=== PATIENT | male | born 1960 | race Caucasian/White ===

== ENCOUNTER 2016-07-26 06:25 | Day surgery (SDC) | payer MEDICARE, MEDICAID ==
--- NOTE | 2016-07-25 11:13 | NUR ---
NN CALLED DR. DELA CRUZ OFFICE AND MALORIE OR CHARGE NURSE TO INFORM THEM THAT THE PT HAD REPORTED CHEST PAIN WITHIN THE LAST 2 MTHS. HE STATED HE TOOK A NITRO AND THE CP RESOLVED. HE DID NOT REPORT THE CP TO HIS STATION USHER DR. FLOYD. PT STATES HE JUST TELLS HIM ABOUT HIS EPISODES WHEN HE SEES HIM FOR HIS ROUTINE VISITS.
[2016-07-26] VITALS (21 sets, daily range): BP systolic 86–131; BP diastolic 50–75; PULSE 70–90; RESP 14–22; TEMP 97.6–97.8; O2SAT 74–98; Ht 177.8 cm; Wt 89.0 kg
[~2016-07-26] VITALS: Ht 177.8 cm; Wt 89.0 kg
[~2016-07-26 06:25] MED LIST: ASPI-611 PO; DULO60CA25 PO; ESOM20CA18 PO; GABA-222 PO; IPRA4AER PO; LEVO25TA9 PO; MELO-273 PO; METF-203 PO; METO25TA6 PO; MULT-1243 PO; NITR0.4T38 SL; PALI6TAB3 PO; PRAV40TA46 PO; QUET400T5 PO; TIOT18CA3 ORAL INH; TRAZ-58 PO
--- OUTSIDE RECORDS SUMMARY | 2016-07-26 06:30 | XMS REPORT ---
Author Author [facility] Organization Unknown Address Unknown Phone Unavailable Care Team Providers Care Clerk Cashier Name Role Phone UNASSIGNED DOCTOR , DOCTOR PP [phone] Reason For Visit Reason for Visit from 08/07/2014 11:44 PM:* Pt Stated Reason for Adm : Suicidal, I was going to shoot myself Chief Complaint PSYCHOSIS NOS Social History Social History from 08/12/2014 12:58 PM:* Tobacco Use? : Current Everyday Smoker Social History from 08/07/2014 11:44 PM:* Tobacco Use? : Current Everyday Smoker Functional Status Functional Status from 08/12/2014 9:00 AM:* LOC : Alert * Oriented To : Person,Place,Time,Event * Weight Bearing Status : Full * Assist Level : Independent * # Assists : Independent Functional Status from 08/11/2014 8:05 PM:* LOC : Alert * Oriented To : Person,Place,Time * Weight Bearing Status : Full * Assist Level : Independent * # Assists : Independent Functional Status from 08/11/2014 9:00 AM:* LOC : Alert * Oriented To : Person,Place,Time,Event * Weight Bearing Status : Full * Assist Level : Independent * # Assists : Independent Functional Status from 08/10/2014 8:10 PM:* LOC : Alert * Oriented To : Person,Place,Time * Weight Bearing Status : Full * Assist Level : Independent * # Assists : Independent Functional Status from 08/10/2014 9:34 AM:* LOC : Alert * Oriented To : Person,Place,Time,Event * Weight Bearing Status : Full * Assist Level : Independent * # Assists : Independent Functional Status from 08/09/2014 8:10 PM:* LOC : Alert * Oriented To : Person,Place,Time * Weight Bearing Status : Full * Assist Level : Independent * # Assists : Independent Functional Status from 08/09/2014 9:00 AM:* LOC : Alert * Oriented To : Person,Place,Time,Event * Weight Bearing Status : Full * Assist Level : Independent * # Assists : Independent Functional Status from 08/08/2014 8:15 PM:* LOC : Alert * Oriented To : Person,Place,Time * Weight Bearing Status : Full * Assist Level : Independent * # Assists : Independent Functional Status from 08/08/2014 9:17 AM:* LOC : Alert * Oriented To : Person,Place,Time,Event * Weight Bearing Status : Full * Assist Level : Independent * # Assists : Independent Functional Status from 08/07/2014 11:44 PM:* LOC : Alert * Oriented To : Person,Place,Time,Event * Weight Bearing Status : Full * Assist Level : Independent * # Assists : Independent Vital Signs Hospital Vital Signs from 08/12/2014 7:13 AM:* Weight : 79.4/ kg * Height : 5/10 ft,in * Temperature : 98.0 F * Pulse : 115 * Respirations : 18 * BP : 121/81 Hospital Vital Signs from 08/11/2014 6:24 AM:* Height : 5/10 ft,in * Temperature : 97.5 F * Pulse : 98 * Respirations : 18 * BP : 109/67 Hospital Vital Signs from 08/10/2014 9:38 AM:* Weight : 78.8/ kg * Height : 5/10 ft,in Hospital Vital Signs from 08/10/2014 6:35 AM:* Weight : 78.8/ kg * Height : 5/10 ft,in Hospital Vital Signs from 08/10/2014 6:19 AM:* Height : 5/10 ft,in * Temperature : 97.0 F * Pulse : 89 * Respirations : 20 * BP : 109/74 Hospital Vital Signs from 08/09/2014 6:07 AM:* Height : 5/10 ft,in * Temperature : 97.0 F * Pulse : 110 * Respirations : 20 * BP : 99/64 Hospital Vital Signs from 08/08/2014 3:12 PM:* Height : 5/10 ft,in * Temperature : 97.6 F * Pulse : 102 * Respirations : 18 * BP : 109/71 Hospital Vital Signs from 08/08/2014 6:55 AM:* Height : 5/10 ft,in * Temperature : 97.2 F * Pulse : 96 * Respirations : 16 * BP : 96/57 Hospital Vital Signs from 08/07/2014 11:44 PM:* Weight : 78.3/ kg * Height : 5/10 ft,in Hospital Vital Signs from 08/07/2014 11:10 PM:* Weight : 78.3/ kg * Height : 5/10 ft,in * Temperature : 97.4 F * Pulse : 89 * Respirations : 20 * BP : 113/78 Results Chemistry from 08/08/2014 6:33 AMGLUCOSE (FASTING) 93 MG/DL (65-99 MG/DL) Problems Encounter Diagnosis * Mood Disorder Status:Active. Encounters Encounter Diagnosis * Mood Disorder Status:Active. Plan of Care Follow-up Appointments from 08/12/2014 12:58 PM:* #1 Office appointment: : Tate Montes * #1 Date/Time : 08/26/2014 2:00 PM * Address # 1 : [employer] [phone] * #2 Office appointment: : Arabella Ji * #2 Date/Time : 08/18/2014 11:00 AM * Address # 2 : [employer] [phone] Procedures No relevant procedures performed. Immunizations No immunizations administered or ordered. Hospital Course Hospital Discharge Instructions How to care for yourself at home from 08/12/2014 12:58 PM:* Discharge Activity : Activity as tolerated * Discharge Diet : As before hospitalization * Discharge Diet: : ADA diet * Call your doctor if: : Fever over 101 F or severe chills,Chest pain or other unexplained symptoms,Tingling or numbness develops,A sudden increase or decrease in weight,You have persistent or worsening symptoms Allergies, Adverse Reactions, Alerts * Penicillins causes Unknown. * No Latex Allergy. * No IV Contrast Allergy. Medication It is the responsibility of the patient or patient training representative to confirm the list of medications with either the patient's personal care provider or the patient's follow-up care provider to ensure the patient has an appropriate list of medications to take at home. Discharge medications Continued medications* levothyroxine (Synthroid) 25 mcg Tablet, Ordered By: DANILO ADKINS, PAC Directions: 1 tablet oral daily before breakfast * gabapentin enacarbil 600 mg Tablet Extended Release, Ordered By: DANILO ADKINS, PAC Directions: 2 tablet oral twice a day * esomeprazole magnesium (NexIUM) 40 mg capsule,delayed release(DR/EC), Ordered By: DANILO ADKINS PAC Directions: 1 capsule oral daily before breakfast Additional Instructions: dyspepsia Changed medications* aspirin 325 mg Tablet, Ordered By: TERRIE DAVISON Directions: 1 tablet oral daily for blood thinner * DULoxetine (Cymbalta) 60 mg capsule,delayed release(/EC), Ordered By: DANILO ADKINS PAC Directions: 2 capsule oral daily every morning for depression * metFORMIN 850 mg Tablet, Ordered By: DANILO ADKINS, PAC Directions: 1 tablet oral twice a day during meal for diabetes * nitroglycerin 0.4 mg Tablet, Sublingual, Ordered By: DANILO ADKINS PAC Directions: 1 tablet sublingual every six hours PRN chest pain * QUEtiapine (SEROquel) 200 mg Tablet, Ordered By: DANILO ADKINS PAC Directions: 3 tablets oral daily at bedtime for psychosis Additional Instructions: 3 TABS FOR A TOTAL DOSE OF 600MG * tiotropium bromide (SPIriva with HandiHaler) 18 mcg Capsule, w/Inhalation Device, Ordered By: TERRIE DAVISON Directions: 1 capsule by inhalation daily for shortness of breath * traZODone 150 mg Tablet, Ordered By: TERRIE DAVISON Directions: 1 tablet oral daily at bedtime for insomnia * pravastatin 40 mg Tablet, Ordered By: TERRIE DAVISON Directions: 1 tablet oral daily at bedtime for hypercholesterolemia Stopped medications* metoprolol tartrate 25 mg Tablet Directions: 1 tablet oral twice a day * paliperidone (Invega) 12mg tablet extended release 24hr Directions: 1 tablet oral daily * carisoprodol (Soma) 250 mg Tablet Directions: oral every six hours PRN as needed * benztropine Tablet Directions: 0.5 tablet oral PRN as needed
--- OUTSIDE RECORDS SUMMARY | 2016-07-26 06:30 | XMS REPORT | Continuity of Care Document ---
Author Author [facility] Organization [facility] Address Unknown Phone Unavailable Care Team Providers Care Rpg Programmer Analyst Name Role Phone JOHANA MADDEN MD PP Unavailable Insurance Providers Payer Name Policy Number Subscriber Name Relationship Medicarehumana Gold o [id number] Shakir Lobo 19 Self Problems No Known Problems or Medical conditions. Family History History Response Recorded Date/Time HX of Orthopedic Surgeries Y LUE AMPUTATION, L KNEE SURGERY, R SHOULDER REPAIR 11/19/12 11:07am Hx Abdominal Surgery Y CHOLEY,APPENDIX,TISSUE FROM STOMACH TO REBUILD "FLAPPER ",BOWEL OBSTRUC 11/19/12 11:07am HX Cerebrovascular Accident N 11/19/12 11:07am Hx Seizures N 11/19/12 11:07am Hx Angina Y 11/19/12 11:07am Hx Congestive Heart Failure N 11/19/12 11:07am Hx Heart Attack N 11/19/12 11:07am Hx Hypertension N 11/19/12 11:07am Hx Rheumatic Fever N 12/04/11 1:17pm Hx Chronic Obstructive Pulmonary Disease (COPD) N 11/19/12 11:07am Hx Diabetes Y 11/19/12 11:07am Hx Clotting Problems N 11/19/12 11:07am Hx Cancer N 11/19/12 11:07am Hx MRSA N 11/19/12 11:07am HX of Cardiac Surgeries Y HEART CATH 11/19/12 11:07am HX of Reproductive Surgeries N 11/19/12 11:07am HX of Endocrine Surgeries N 11/19/12 11:07am HX of Throat Surgery Y EGD, TONSILLECTOMY, ADENOIDECTOMY 11/19/12 11:07am HX of Neurological Surgeries Y neck surgery 11/19/12 11:07am HX of Genitourinary Surgeries N 11/19/12 11:07am Neurological neuropathy 09/04/10 6:26pm Social History History Response Recorded Date/Time Smoking Status Current every day smoker 11/19/12 11:07am Chewing Tobacco Status N 11/19/12 11:07am Hx Substance Use N HX MARIJUANA, QUIT IN 198711/19/12 11:07am Hx Alcohol Use N "CLEAN SINCE 1987" 11/19/12 11:07am Has the pt used tobacco in the last 12 months Y 11/19/12 11:07am Allergies, Adverse Reactions, Alerts Allergen Type Severity Reaction Last Updated Penicillins Allergy Intermediate 11/20/12 bee venom (honey bee) Allergy Severe 11/20/12 Medications Medication Dose Units Route Sig Qty Days Methocarbamol 750 Mg PO PRN Nitroglycerin 0.4 Mg SL PRN Isosorbide Mononitrate (Imdur) 30 Mg PO DAILY Aspirin 81 Mg PO DAILY Meloxicam 15 Mg PO DAILY PRN Pravastatin Sodium 40 Mg PO DAILY Duloxetine Hcl (Cymbalta) 60 Mg PO DAILY Duloxetine Hcl (Cymbalta) 30 Mg PO DAILY Benztropine Mesylate 1.5 Mg PO DAILY PRN Metformin Hcl 1 Tab PO TID Gabapentin 2 Tab PO TID Esomeprazole Mag Trihydrate (Nexium) 40 Mg PO DAILY Paliperidone (Invega) 2 Tab PO DAILY Trazodone Hcl 150 Mg PO TID Quetiapine Fumarate (Seroquel Xr) 800 Mg PO HS Methocarbamol 1 Tab PO Q8H PRN [Pravastatin] PO DAILY [cholesterol med] [Cymbalta] PO DAILY Hydrocodone Bit/Acetaminophen (Lortab 7.5) 1 Tab PO PRN Methocarbamol (Robaxin-750) 1 Tab PO HS Fish Oil/[place]-3 Fatty Acids (Fish Oil 1,000 Mg Capsule) 1 Cap PO BID Immunizations Name Given Type Hx Influenza Vaccination Y JAN 2012 H Hx Pneumococcal Vaccination N H Response Recorded Date/Time Status not known Unknown Results Test Date Result Interp. Ref. Range Acetaminophen Level September 18, 2009 3:00pm < 10 UG/ML L 10-30 Activated Partial Thromboplast Time October 08, 2009 4:30pm 34.0 SEC N 24-36 Alanine Aminotransferase (ALT/SGPT) October 25, 2012 1:05pm 23 U/L N 21-72 Albumin October 25, 2012 1:05pm 3.3 G/DL L 3.5-5.0 Albumin/Globulin Ratio October 25, 2012 1:05pm 1.4 RATIO N 1.1-2.2 Alcohol, Quantitative September 18, 2009 3:00pm <10 MG/DL - Alkaline Phosphatase October 25, 2012 1:05pm 72 U/L N 38-126 Amylase Level April 11, 2010 10:25pm 42 U/L N 30-110 Anion Gap November 20, 2012 10:50am 11 MEQ/L N 5-15 Aspartate Amino Transf (AST/SGOT) October 25, 2012 1:05pm 22 U/L N 17-59 BUN/Creatinine Ratio November 20, 2012 10:50am 10 RATIO N 6-26 Band Neutrophils # November 20, 2012 10:50am 0.4 T/MM3 - Band Neutrophils % November 20, 2012 10:50am 2.0 % N 0-6 Basophils # (Auto) October 26, 2012 6:25am 0.0 T/MM3 N 0-0.2 Basophils # (Manual) July 15, 2009 11:11am 0.0 T/MM3 N 0-0.2 Basophils % (Manual) July 15, 2009 11:11am 0.0 % N 0-2 Basophils (%) (Auto) October 26, 2012 6:25am 0.3 % N 0-2 Blood Urea Nitrogen November 20, 2012 10:50am 6.0 MG/DL L 9-20 Calcium Level November 20, 2012 10:50am 8.8 MG/DL N 8.4-10.2 Calculated Osmolality November 20, 2012 10:50am 271 MOSM/KG N 261-280 Carbon Dioxide Level November 20, 2012 10:50am 24 MEQ/L N 22-30 Chloride Level November 20, 2012 10:50am 107 MEQ/L N 98-107 Cholesterol Level September 18, 2009 3:00pm 223 MG/DL H 132-199 Cholesterol/HDL Ratio September 18, 2009 3:00pm 8.3 RATIO H 0-5.0 Conjugated Bilirubin April 11, 2010 10:25pm 0.00 MG/DL N 0.00-0.30 Creatine Kinase MB October 25, 2012 1:05pm 0.4 NG/ML N 0-3.4 Creatinine November 20, 2012 10:50am 0.6 MG/DL L 0.8-1.5 D-Dimer October 25, 2012 1:05pm < 150 NG/ML 0-230 Differential Total Cells Counted April 11, 2010 10:25pm 100 % - Eosinophils # (Auto) October 26, 2012 6:25am 0.3 T/MM3 N 0-0.5 Eosinophils # (Manual) November 20, 2012 10:50am 0.4 T/MM3 N 0-0.5 Eosinophils % (Manual) November 20, 2012 10:50am 2.0 % N 0-4 Eosinophils (%) (Auto) October 26, 2012 6:25am 2.8 % N 0-4 Globulin October 25, 2012 1:05pm 2.4 G/DL N 2.4-3.6 Glomerular Filtration Rate Calc November 20, 2012 10:50am 142 - Glucometer October 26, 2012 12:15pm 106 mg/dL N 75-110 Glucose Level November 20, 2012 10:50am 96 MG/DL N 75-110 HDL Cholesterol Direct September 18, 2009 3:00pm 27 MG/DL L 40-60 Hematocrit November 20, 2012 10:50am 41.8 % N 41-53 Hemoglobin November 20, 2012 10:50am 14.0 GM/DL N 13.5-17.5 Immature Granulocyte # (Auto) October 26, 2012 6:25am 0.04 T/MM3 H 0.00-0.03 Immature Granulocyte % (Auto) October 26, 2012 6:25am 0.4 % N 0.0-0.5 Influenza Type A Antigen May 21, 2012 9:31pm Negative - Influenza Type B Antigen May 21, 2012 9:31pm Negative - LDL Cholesterol, Calculated September 18, 2009 3:00pm 111.4 N 66-159 Lipase April 11, 2010 10:25pm 125 U/L N 23-300 Lymphocytes # (Auto) October 26, 2012 6:25am 2.8 T/MM3 N 1-4.8 Lymphocytes # (Manual) November 20, 2012 10:50am 4.1 T/MM3 N 1-4.8 Lymphocytes % (Manual) November 20, 2012 10:50am 21.0 % L 23-45 Lymphocytes (%) (Auto) October 26, 2012 6:25am 30.5 % N 23-45 Magnesium Level August 05, 2007 1:15pm 2.1 MG/DL N 1.6-2.3 Mean Corpuscular Hemoglobin November 20, 2012 10:50am 31.4 UUG N 26-34 Mean Corpuscular Hemoglobin Concent November 20, 2012 10:50am 33.5 GM/DL N 31-37 Mean Corpuscular Volume November 20, 2012 10:50am 93.7 UM3 N 80-100 Mean Platelet Volume November 20, 2012 10:50am 10.1 UM3 N 9.4-12.4 Monocytes # (Auto) October 26, 2012 6:25am 0.8 T/MM3 N 0-0.8 Monocytes # (Manual) November 20, 2012 10:50am 1.0 T/MM3 H 0-0.8 Monocytes % (Manual) November 20, 2012 10:50am 5.0 % N 0-9.0 Monocytes (%) (Auto) October 26, 2012 6:25am 8.5 % N 0-9.0 Neutrophils # (Auto) October 26, 2012 6:25am 5.2 T/MM3 N 1.8-7.7 Neutrophils # (Manual) November 20, 2012 10:50am 13.8 T/MM3 H 1.8-7.7 Neutrophils % (Manual) November 20, 2012 10:50am 70.0 % H 33-66 Neutrophils (%) (Auto) October 26, 2012 6:25am 57.5 % N 33-66 Platelet Count November 20, 2012 10:50am 257 T/MM3 N 130-400 Potassium Level November 20, 2012 10:50am 3.9 MEQ/L N 3.6-5 Prothromb Time International Ratio October 08, 2009 4:30pm 0.96 N 0.86-1.10 RDW Standard Deviation November 20, 2012 10:50am 43.6 FL N 36.9-50.2 Reactive Lymphocytes # May 24, 2012 5:20pm 0.2 T/MM3 H 0-0 Reactive Lymphocytes % May 24, 2012 5:20pm 1.0 % H 0-0 Red Blood Count November 20, 2012 10:50am 4.46 M/MM3 L 4.50-5.90 Salicylates Level September 18, 2009 3:00pm < 1.0 MG/DL L 2-20 Sodium Level November 20, 2012 10:50am 142 MEQ/L N 134-144 Total Bilirubin October 25, 2012 1:05pm 0.40 MG/DL N 0.20-1.30 Total Protein October 25, 2012 1:05pm 5.7 G/DL L 6.3-8.2 Triglycerides Level September 18, 2009 3:00pm 423 MG/DL H 40-160 Troponin I October 26, 2012 6:25am < 0.012 ng/ml 0-0.12 Unconjugated Bilirubin April 11, 2010 10:25pm 0.36 MG/DL N 0.00-1.10 Urine Acetaminophen Screen September 18, 2009 3:00pm Negative NG/ML - Urine Amphetamines Screen September 18, 2009 3:00pm Negative NG/ML - Urine Bacteria April 12, 2010 1:47pm Trace H - Urine Barbiturates Screen September 18, 2009 3:00pm Negative NG/ML - Urine Benzodiazepines Screen September 18, 2009 3:00pm Negative NG/ML - Urine Bilirubin October 25, 2012 6:11pm Negative - Urine Blood October 25, 2012 6:11pm Negative - Urine Calcium Oxalate Crystals October 08, 2008 6:05am Few - Urine Cannabinoids Screen September 18, 2009 3:00pm Positive NG/ML - Urine Cocaine Screen September 18, 2009 3:00pm Negative NG/ML - Urine Collection Type October 25, 2012 6:11pm Cleancatch-midstream - Urine Color October 25, 2012 6:11pm Yellow - Urine Drug Screen Confirmation September 18, 2009 3:23pm Sent out - Urine Glucose (UA) October 25, 2012 6:11pm Negative - Urine Ketones October 25, 2012 6:11pm Negative - Urine Leukocyte Esterase October 25, 2012 6:11pm Negative - Urine Methadone Screen September 18, 2009 3:00pm Negative NG/ML - Urine Methamphetamines Screen September 18, 2009 3:00pm Negative NG/ML - Urine Microscopic Not Indicated October 09, 2009 5:36pm Not indicated - Urine Nitrite October 25, 2012 6:11pm Negative - Urine Opiates Screen September 18, 2009 3:00pm Negative NG/ML - Urine Phencyclidine Screen September 18, 2009 3:00pm Negative NG/ML - Urine Protein October 25, 2012 6:11pm Negative - Urine RBC April 12, 2010 1:47pm None seen /HPF - Urine Specific [place] October 25, 2012 6:11pm 1.010 L - Urine Squamous Epithelial Cells October 08, 2008 6:05am None seen - Urine Tricyclic Antidepressants September 18, 2009 3:00pm Negative NG/ML - Urine Turbidity October 25, 2012 6:11pm Clear - Urine Urobilinogen October 25, 2012 6:11pm Normal EU/DL - Urine WBC April 12, 2010 1:47pm 0-1 /HPF - Urine pH October 25, 2012 6:11pm 7.0 - VLDL Cholesterol September 18, 2009 3:00pm 84.6 MG/DL H 0-28 White Blood Count November 20, 2012 10:50am 19.7 T/MM3 H 4.5-11.0 Procedures Procedure Code Date COLONOSCOPY AND BIOPSY 53374 09/04/07 INCISE THIGH TENDON & FASCIA 56268 07/15/09 LESION REMOVAL COLONOSCOPY 61440 12/06/11 COLONOSCOPY AND BIOPSY 67373 12/06/11 THER/PROPH/DIAG INJ IV PUSH 41079 05/21/12 TX/PRO/DX INJ NEW DRUG ADDON 34723 05/21/12 HYDRATE IV INFUSION ADD-ON 60320 05/21/12 Blood Culture 10/25/12 Encounters Encounter Location Date/Time Discharged Inpatient [facility] 10/25/12 12:25pm Departed Emergency Room [facility] 05/21/12 7:34pm
--- OUTSIDE RECORDS SUMMARY | 2016-07-26 06:30 | XMS REPORT | Continuity of Care Document ---
Author Author [facility] Organization [facility] Address Unknown Phone Unavailable Care Team Providers Care Escrow Clerk Name Role Phone JOHANA MADDEN MD PP Unavailable Insurance Providers Payer Name Policy Number Subscriber Name Relationship Medicarehumana Gold o [id number] Shakir Lobo 19 Self Problems No Known [...] Methocarbamol (Robaxin-750) 1 Tab PO HS Fish Oil/[place]-3 Fatty Acids (Fish Oil 1,000 Mg Capsule) [...] 1:47pm None seen /HPF - Urine Specific [place] October 25, 2012 6:11pm 1.010 L - [...] Procedures Procedure Code Date COLONOSCOPY AND BIOPSY 54167 09/04/07 INCISE THIGH TENDON & FASCIA 67017 07/15/09 LESION REMOVAL COLONOSCOPY 71813 12/06/11 COLONOSCOPY AND BIOPSY 52366 12/06/11 THER/PROPH/DIAG INJ IV PUSH 12512 05/21/12 TX/PRO/DX INJ NEW DRUG ADDON 60924 05/21/12 HYDRATE IV INFUSION ADD-ON 37976 05/21/12 Blood Culture 10/25/12 Encounters Encounter Location Date/Time Discharged Inpatient [facility] 10/25/12 12:25pm Departed Emergency Room [facility] 05/21/12 7:34pm
--- OUTSIDE RECORDS SUMMARY | 2016-07-26 06:30 | XMS REPORT ---
Author Author [facility] Organization Unknown Address Unknown Phone Unavailable Care Team Providers Care Primary School Teacher Name Role Phone UNASSIGNED DOCTOR , DOCTOR PP [phone] Reason For Visit Reason for Visit from [...] 2:00 PM * Address # 1 : [email or web address] [phone] * #2 Office appointment: : Arabella Ji * #2 Date/Time : 08/18/2014 11:00 AM * Address # 2 : [email or web address] [phone] Procedures No relevant procedures performed. Immunizations No [...] the responsibility of the patient or patient outside sales representative to confirm the list of medications [...] metFORMIN 850 mg Tablet, Ordered By: DANILO ADIKNS PAC Directions: 1 tablet oral twice a [...] 18 mcg Capsule, w/Inhalation Device, Ordered By: DANILO ADKINS PAC Directions: 1 capsule by inhalation daily for [...]
[2016-07-26] MEDS ORDERED: FENTANYL 100mcg/2ml INJECTION ONE (06:50)
[2016-07-26] MEDS ORDERED: MIDAZOLAM 5mg/5ml INJECTION ONE (06:50)
[2016-07-26] MEDS ORDERED: SALINE FLUSH 10ml SYRINGE ONE (06:52)
[2016-07-26] MEDS ORDERED: LIDOCAINE 1% (10mg/ml) 2ml SDV INJ ONE (07:00)
[2016-07-26] MEDS ORDERED: LR 1,000 ML IV SCH (07:00)
[2016-07-26] MEDS ORDERED: BREO (07:14)
[2016-07-26] MEDS ORDERED: FENTANYL 100mcg/2ml INJECTION IV PRN (08:24)
[2016-07-26] MEDS ORDERED: MIDAZOLAM 5mg/5ml INJECTION IV PRN (08:24)
[2016-07-26] MEDS ORDERED: GLUCAGON 1 MG INJECTION IV PRN (08:37)
[2016-07-26] MEDS ORDERED: GLUCAGON 1 MG INJECTION ONE (08:39)
[2016-07-26] MEDS ORDERED: MIDAZOLAM 2mg/2ml INJECTION ONE (08:45)
[2016-07-26] MEDS ORDERED: PEG4000S3 PO (09:48)
--- NOTE | 2016-07-26 15:50 | OPNOTEF ---
DATE OF PROCEDURE: 07/26/2016 PHYSICIAN: Sonny Bhardwaj DO PROCEDURE: Colonoscopy. INDICATION FOR PROCEDURE History of colon polyps. ASA CLASSIFICATION: 2 DESCRIPTION OF PROCEDURE Consent was signed and on the chart. Routine monitoring with ECG, continuous oximetry and noninvasive blood pressure was performed throughout the procedure and found to be within normal limits. IV sedation was performed with a total of 7 mg of Versed and 80 mcg of fentanyl. He was also given 1 amp of glucagon. Prior to the procedure the patient was brought to the endoscopy lab where a brief review of his medical history and physical exam was performed. The procedure was described to him and he was agreeable to continue. All questions were answered. He was given IV sedation and placed in left lateral decubitus position. A digital rectal exam was normal. No masses. The colonoscope was introduced through the anal verge and immediately noted that he had a rather poor bowel prep. Multiple washings were performed throughout the procedure. I was able to get to the hepatic flexure and noted that with some washings there seemed to be a colon mass taking up approximately one-tenth of the bowel lumen. This was photographed and biopsied. Multiple washings were performed on the way out again and it was just a very poor bowel prep. He tolerated the procedure. The only complication was the poor bowel prep. IMPRESSION 1. Poor bowel prep. 2. Mass at the proximal transverse colon - biopsied. 3. Polyps at the transverse colon - biopsied. RECOMMENDATIONS Repeat the bowel prep today with clear liquids and repeat the procedure tomorrow with an attempt of complete polypectomy. NICHOLAS
== END 2016-07-26 10:45 | disposition home or self-care (01) ==
LOC: NSC 06:25
PROVIDERS: ATTEND Internal Medicine
DX: Z12.11 Encounter for screening for malignant neoplasm of colon (principal); D12.3 Benign neoplasm of transverse colon; Z86.010 Personal history of colon polyps; F17.200 Nicotine dependence, unspecified, uncomplicated; E11.9 Type 2 diabetes mellitus without complications; K21.0 Gastro-esophageal reflux disease with esophagitis; F20.0 Paranoid schizophrenia; F06.30 Mood disorder due to known physiological condition, unspecified; F60.9 Personality disorder, unspecified; F43.10 Post-traumatic stress disorder, unspecified; J44.9 Chronic obstructive pulmonary disease, unspecified; E66.9 Obesity, unspecified; Z68.28 Body mass index [BMI] 28.0-28.9, adult; Z79.84 Long term (current) use of oral hypoglycemic drugs; Z79.1 Long term (current) use of non-steroidal anti-inflammatories (NSAID); Z79.82 Long term (current) use of aspirin; Z79.899 Other long term (current) drug therapy
CPT/HCPCS: 45380; 82948; J1610; J2250; J3010; J7120

== ENCOUNTER 2016-07-27 10:34 | Day surgery (SDC) | payer MEDICARE, MEDICAID ==
[~2016-07-27] VITALS: Ht 177.8 cm; Wt 88.8 kg
[2016-07-27] VITALS (23 sets, daily range): BP systolic 75–110; BP diastolic 43–64; PULSE 67–82; RESP 14–16; TEMP 97–97.5; O2SAT 90–98; Ht 177.8 cm; Wt 88.8 kg
[~2016-07-27 10:34] MED LIST changes: +BREO; +LIDOCAINE 1% (10mg/ml) 2ml SDV INJ ONE; +LR 1,000 ML IV SCH; +PEG4000S3 PO; -TIOT18CA3 ORAL INH
--- OUTSIDE RECORDS SUMMARY | 2016-07-27 10:38 | XMS REPORT | Continuity of Care Document ---
Author Author [facility] Organization [facility] Address Unknown Phone Unavailable Care Team Providers Care Cathodic Protection Technician Name Role Phone JOHANA MADDEN MD PP Unavailable Insurance Providers Payer Name Policy Number Subscriber Name Relationship Medicarehumana Gold o [id number] Shakir Lobo 19 Self Problems No Known [...] Methocarbamol (Robaxin-750) 1 Tab PO HS Fish Oil/[place]-3 Fatty Acids (Fish Oil 1,000 Mg Capsule) [...] 1:47pm None seen /HPF - Urine Specific [place] October 25, 2012 6:11pm 1.010 L - [...] Procedures Procedure Code Date COLONOSCOPY AND BIOPSY 83729 09/04/07 INCISE THIGH TENDON & FASCIA 66082 07/15/09 LESION REMOVAL COLONOSCOPY 81926 12/06/11 COLONOSCOPY AND BIOPSY 40701 12/06/11 THER/PROPH/DIAG INJ IV PUSH 01905 05/21/12 TX/PRO/DX INJ NEW DRUG ADDON 94996 05/21/12 HYDRATE IV INFUSION ADD-ON 86739 05/21/12 Blood Culture 10/25/12 Encounters Encounter Location Date/Time Discharged Inpatient [facility] 10/25/12 12:25pm Departed Emergency Room [facility] 05/21/12 7:34pm
--- OUTSIDE RECORDS SUMMARY | 2016-07-27 10:38 | XMS REPORT | Continuity of Care Document ---
Author Author [facility] Organization [facility] Address Unknown Phone Unavailable Care Team Providers Care Coat Check Attendant Name Role Phone RAMIRO DELA CRUZ DO Primary Care Physician [phone] Insurance Providers Guarantor Shakir Lobo Address [address] [place] [address] Email DENIED 16 Payer Medicaid Policy Number [id number] Subscriber's Shakir Bonilla Relationship 18 Self Effective Date 16 Expiration Date 16 Payer Medicarehumana Gold Hmo Policy Number [id number] Subscriber's Shakir Bonilla Relationship 18 Self Advance Directives Directive Response Recorded Date/Time Ordered Resuscitation Status Full Code, unverified 07/25/16 2:51pm Resuscitation Documents on File No 07/26/16 7:04am DPOA for Healthcare Only No 07/26/16 7:04am Living Will No 07/26/16 7:04am Problems Active Problems Medical Problem Onset Date Status Depression with suicidal ideation Unknown Acute Schizophrenia Unknown Acute Medications Current Home Medications Medication Dose Units Route Directions Days Qty Instructions Start Date Albuterol/Ipratropium (Combivent Respimat Inhal [place]) 120 Puff/4 Gm Inha 1 Puff Oral Four Times Daily as needed for Shortness Of Air/Wheezing 07/25/16 Aspirin 81 Mg Tablet 81 Mg Oral Daily 11/19/12 Breo Daily 07/26/16 Duloxetine Hcl (Cymbalta) 60 Mg Capsule. 60 Mg Oral Daily COMBINE WITH 30MG TO EQUAL 90MG TOTAL. 05/21/12 Esomeprazole Mag Trihydrate (Nexium) 20 Mg Capsule.dr 40 Mg Oral Daily 10/09/09 Gabapentin 600 Mg Tablet 2 Tab Oral Twice A Day 05/21/10 Levothyroxine Sodium 25 Mcg Tablet 25 Mcg Oral Before Breakfast Once daily before breakfast 08/07/14 Meloxicam 7.5 Mg Tablet 1 Tab Oral Daily 30 04/05/15 Metformin Hcl 850 Mg Tablet 1 Tab Oral Twice A Day 05/21/10 Metoprolol Tartrate 25 Mg Tablet 1 Tab Oral Twice A Day 60 Multivits-Min/Fa/Lycopene/Lut (Centrum Silver Tablet) 1 Each Tablet 1 Tab Oral Daily 07/25/16 Nitroglycerin 0.4 Mg Tab.subl 0.4 Mg Sublingual As Needed Paliperidone (Invega) 6 Mg/Blist Pack Tab.osm.24 2 Tab Oral Daily 10/09/09 Peg 3350/Na Sulf,Bicarb,Cl/Kcl (Golytely Solution) 4,000 Ml Solution 4,000 Ml Oral Onetime 1 Bottle Take 1 (8 ounce) glass every 10 minutes until all taken. 07/26/16 Pravastatin Sodium 40 Mg Tablet 40 Mg Oral Daily 10/25/12 Quetiapine Fumarate (Seroquel Xr) 400 Mg Tab.sr.24h 800 Mg Oral Bedtime 10/09/09 Trazodone Hcl 100 Mg Tablet 150 Mg Oral Bedtime 10/09/09 Past Home Medications Medication Directions Ordered Status Cholesterol Med , 05/21/12 Discontinued Cymbalta , Oral Daily 04/11/10 Discontinued Docusate Sodium 100 Mg Tablet, 100 Mg Oral As Needed 10/09/09 Discontinued Duloxetine Hcl (Cymbalta) 60 Mg Capsule.dr, 60 Mg Oral Daily 10/09/09 Discontinued Fish Oil/[place]-3 Fatty Acids (Fish Oil 1,000 Mg Capsule) 1 Cap Capsule, 1 Cap Oral Twice A Day 10/09/09 Discontinued Gabapentin 300 Mg Tablet, 600 Mg Oral Twice A Day 10/09/09 Discontinued Hydrocodone Bit/Acetaminophen (Lortab 7.5) 1 Udtab Tablet, 1 Tab Oral As Needed 09/04/10 Discontinued Hydroxyzine Pamoate 25 Mg Capsule, 25 Mg Oral As Needed 10/09/09 Discontinued Hydroxyzine Pamoate (Vistaril) 25 Mg Capsule, 1 Oral Three Times A Day 10/08 Discontinued Isosorbide Mononitrate (Imdur) 30 Mg Tablet, 30 Mg Oral Daily 08/03/09 Discontinued Lansoprazole (Prevacid) 30 Mg Capsule.dr, 30 Mg Oral Daily 08/03/09 Discontinued Lovastatin 10 Mg Tablet, 10 Mg Oral Bedtime 10/09/09 Discontinued Metformin Hcl 500 Mg Tablet, 500 Mg Oral Twice A Day 10/09/09 Discontinued Methocarbamol 750 Mg Tablet, 1 Tab Oral Every 8 Hours as needed 10/25/12 Discontinued Methocarbamol (Robaxin-750) 750 Mg Tablet, 1 Tab Oral Bedtime 05/21/10 Discontinued Multivitamins (Multivitamin) 1 Tab Tablet, 1 Tab Oral Daily 10/09/09 Discontinued Neurontin 1200 Mg , Oral Twice A Day 10/08/08 Discontinued Pravastatin , Oral Daily 05/21/12 Discontinued Sennosides/Docusate Sodium (Senna Plus Tablet) 1 Udtab Tablet, 1 Udtab Oral Twice A Day 08/03/09 Discontinued Seroquel 500 Mg , Oral Daily 10/08/08 Discontinued Sertraline Hcl (Zoloft) 100 Mg Tablet, 1 Oral Daily 10/08/08 Discontinued Trazodone Hcl 50 Mg Tablet, Oral Daily 10/08/08 Discontinued Social History Social History Problem Response Recorded Date/Time Onset Date Status Reason for Hospitalization COLONOSCOPY 07/26/2016 9:58am Not Applicable Not Applicable Chewing Tobacco Status No 11/19/2012 11:07am Not Applicable Not Applicable Hx Substance Use N HX MARIJUANA, QUIT IN 198707/26/2016 6:59am Not Applicable Not Applicable Hx Alcohol Use Y "CLEAN SINCE 1987", no beer since 07/26/2016 6:59am Not Applicable Not Applicable Has the pt used tobacco in the last 12 months Yes 07/26/2016 6:59am Not Applicable Not Applicable Tobacco Usage none 08/07/2014 6:51pm Not Applicable Not Applicable Query Response Start Date Stop Date Smoking Status Current every day smoker Hospital Discharge Instructions Instructions: Care Instructions: I was in the hospital because (patient own words): "COLONOSCOPY" Discharge Diet: You may resume your usual diet. Discharge Activity: You may resume your usual activity. Follow Up Appointments: Follow up with Dr. Dela Cruz as instructed. You can call his office for any questions or concerns. Pending Lab / Results: Will be notified Patient Instructions: Do not drive, operate machinery, drink alcohol, or sign important papers for 24 hours. Expected Signs/Symptoms: You may have some gas discomfort. Notify Physician If: Contact Dr. Dela Cruz if you have a fever over 101 degrees, severe abdominal pain, or severe rectal bleeding. During Business Hours:: During office hours, call Dr. Dela Cruz's office at [phone]. After Business Hours:: After hours, please call [facility] at [phone] and have the plastic extruding machine operator page Dr. Dela Cruz or the covering physician. Pain Management/Treatment: You should not have significant pain following the procedure. Wound/Incision Care: No wound care required. Condition at time of discharge: Good Plan of Care Discharge Date 07/26/16 10:45am Instructions/Education Provided [facility] Surgical Services Prescriptions See Medication Section Functional Status Query Response Date Recorded Ability to complete ADL's impeded by No change July 26, 2016 7:04am Allergies, Adverse Reactions, Alerts Allergen Type Severity Reaction Status Last Updated Penicillin Allergy Intermediate Active 07/26/16 Bee venom Allergy Severe Active 07/26/16 Immunizations Query Response on File Recorded Date/Time Hx Influenza Vaccination Y fall 201507/26/16 6:59am Hx Pneumococcal Vaccination Y 201407/26/16 6:59am Hx Influenza Vaccination Y fall 201507/26/16 6:59am Vital Signs Acute Vital Signs Vital Response Date/Time Temperature (Fahrenheit) 97.8 deg F (96.8 - 99.1) 07/26/2016 9:23am Temperature (Calculated Celsius) 36.50612 degrees C (36.0 - 37.3) 07/26/2016 9:23am Temperature Source Temporal 07/26/2016 9:23am Pulse Rate (adult) 76 bpm (60 - 100) 07/26/2016 10:20am Respiratory Rate 20 breaths/min (10 - 20) 07/26/2016 10:20am O2 Sat by Pulse Oximetry 91 % (90 - 100) 07/26/2016 10:20am Oxygen Delivery Method Mask 07/26/2016 8:55am Oxygen Delivery Method Room Air 07/26/2016 10:20am Oxygen Flow Rate 6.00 L/min 07/26/2016 9:30am Blood Pressure 119/75 mm Hg 07/26/2016 10:20am Blood Pressure Source Automatic Cuff 07/26/2016 10:20am Height (Feet) 5 feet 07/26/2016 6:41am Height (Inches) 10.00 inches 07/26/2016 6:41am Weight (Kilograms) 89.000 kg 07/26/2016 6:41am Body Mass Index (BMI) 28.2 07/26/2016 6:41am Results Laboratory Results Test Name Result Units Flags Reference Collection Date/Time Result Date/ Time Comments Glucometer 119 mg/dL H 75-110 07/26/2016 6:51am 07/26/2016 6:56am Procedures Procedure Status Date Provider(s) Colonoscopy Completed 07/26/16 RAMIRO DELA CRUZ DO Encounters Encounter Location Arrival/Admit Date Discharge/Depart Date Attending Provider Departed [facility] 07/26/16 6:25am 07/26/16 10 :45am RAMIRO DELA CRUZ DO
--- OUTSIDE RECORDS SUMMARY | 2016-07-27 10:38 | XMS REPORT ---
Author Author GENERATED, SYSTEM Organization Unknown Address Unknown Phone Unavailable Care Team Providers Care Sales And Management Trainee Name Role Phone UNASSIGNED DOCTOR , DOCTOR PP [phone] Reason For Visit Reason for Visit from [...] 2:00 PM * Address # 1 : [email or web address] [phone] * #2 Office appointment: : Arabella Ji * #2 Date/Time : 08/18/2014 11:00 AM * Address # 2 : [email or web address] [phone] Procedures No relevant procedures performed. Immunizations No [...] the responsibility of the patient or patient product sales representative to confirm the list of [...] metFORMIN 850 mg Tablet, Ordered By: DANILO ADKINS PAC Directions: 1 tablet oral twice a [...]
--- OUTSIDE RECORDS SUMMARY | 2016-07-27 10:38 | XMS REPORT ---
Author Author [facility], SYSTEM Organization Unknown Address Unknown Phone Unavailable Care Team Providers Care Automotive Tire Worker Name Role Phone UNASSIGNED DOCTOR , DOCTOR PP [phone] Reason For Visit Reason for Visit from [...] 2:00 PM * Address # 1 : [place] [phone] * #2 Office appointment: : Arabella Ji * #2 Date/Time : 08/18/2014 11:00 AM * Address # 2 : [place] [phone] Procedures No relevant procedures performed. Immunizations No [...] the responsibility of the patient or patient food service sales representatives to confirm the list of medications with [...]
--- OUTSIDE RECORDS SUMMARY | 2016-07-27 10:38 | XMS REPORT | Continuity of Care Document ---
Author Author [facility] Organization [facility] Address Unknown Phone Unavailable Care Team Providers Care Plate Take Out Worker Name Role Phone JOHANA MADDEN MD PP Unavailable Insurance Providers Payer Name Policy Number Subscriber Name Relationship Medicarehumana Gold o [id number] Shakir Lobo 19 Self Problems No Known [...] Methocarbamol (Robaxin-750) 1 Tab PO HS Fish Oil/[place]-3 Fatty Acids (Fish Oil 1,000 Mg Capsule) [...] 1:47pm None seen /HPF - Urine Specific [place] October 25, 2012 6:11pm 1.010 L - [...] Procedures Procedure Code Date COLONOSCOPY AND BIOPSY 76630 09/04/07 INCISE THIGH TENDON & FASCIA 09011 07/15/09 LESION REMOVAL COLONOSCOPY 34470 12/06/11 COLONOSCOPY AND BIOPSY 64435 12/06/11 THER/PROPH/DIAG INJ IV PUSH 64047 05/21/12 TX/PRO/DX INJ NEW DRUG ADDON 74457 05/21/12 HYDRATE IV INFUSION ADD-ON 09545 05/21/12 Blood Culture 10/25/12 Encounters Encounter Location Date/Time Discharged Inpatient [facility] 10/25/12 12:25pm Departed Emergency Room [facility] 05/21/12 7:34pm
[2016-07-27] MEDS ORDERED: FLEET PHOSPHO-SODA 133 ML ENEMA RECTALLY PRN (12:15)
[2016-07-27] MEDS ORDERED: MIDAZOLAM 5mg/5ml INJECTION ONE (12:15)
[2016-07-27] MEDS ORDERED: SALINE FLUSH 10ml SYRINGE ONE (12:15)
[2016-07-27] MEDS ORDERED: FENTANYL 100mcg/2ml INJECTION ONE (12:15)
[2016-07-27] MEDS ORDERED: FENTANYL 100mcg/2ml INJECTION IV PRN (12:33)
[2016-07-27] MEDS ORDERED: MIDAZOLAM 5mg/5ml INJECTION IV PRN (12:33)
[2016-07-27] MEDS ORDERED: GLUCAGON 1 MG INJECTION ONE ×2 (13:15→13:33)
[2016-07-27] MEDS ORDERED: .STERILE WATER FOR INJECTION 10 ML ONE (13:15)
[2016-07-27] MEDS ORDERED: GLUCAGON 1 MG INJECTION IV PRN (13:15)
--- NOTE | 2016-07-28 07:27 | OPNOTEF ---
DATE OF PROCEDURE: 07/27/2016 PHYSICIAN: Sonny Bhardwaj DO PROCEDURE: Colonoscopy. INDICATION FOR PROCEDURE Colon polyps ASA CLASSIFICATION: 2 DESCRIPTION OF PROCEDURE Consent was signed and on the chart. Routine monitoring with ECG, continuous oximetry and noninvasive blood pressure was performed throughout the procedure and found to be within normal limits. IV sedation was performed with 5 mg of Versed and 50 mcg of fentanyl. He was also given 2 amps of glucagon during the procedure. Prior to the procedure, the patient was brought to the endoscopy lab where a brief review of his medical history and physical exam was performed. The procedure was described to him and he was agreeable to continue. All questions were answered. He was given IV sedation and placed in left lateral decubitus position. The endoscope was advanced through the anal verge and advanced to the cecum. Careful inspection of the mucosa was performed. Multiple washings were performed to ensure adequate visibility. At the level of the cecum, there was a small polyp which was photographed and removed by cold forceps. Also, at the proximal transverse colon, there was a larger adenomatous polyp which was biopsied and then removed with snare polypectomy, and again at the mid transverse the area which I believe I biopsied yesterday and labeled as proximal transverse is actually mid transverse. This area was removed by snare polypectomy as well, and then there was small polyp just distal to it which was also removed by snare polypectomy at the same time. He tolerated the procedure well. There were no complications. IMPRESSION 1. Polyp at the cecum removed by cold forceps. 2. Polyps at the proximal transverse biopsy that were removed with snare. 3. Polyps at the mid transverse removed with snare. RECOMMENDATIONS Review the path report. Repeat as indicated. MTDD
== END 2016-07-27 14:53 | disposition home or self-care (01) ==
LOC: NSC 10:34
PROVIDERS: ATTEND Internal Medicine
DX: D12.3 Benign neoplasm of transverse colon (principal); D12.0 Benign neoplasm of cecum; Z86.010 Personal history of colon polyps; J44.9 Chronic obstructive pulmonary disease, unspecified; F43.10 Post-traumatic stress disorder, unspecified; F60.9 Personality disorder, unspecified; F06.30 Mood disorder due to known physiological condition, unspecified; F20.0 Paranoid schizophrenia; K21.0 Gastro-esophageal reflux disease with esophagitis; E11.9 Type 2 diabetes mellitus without complications; F17.210 Nicotine dependence, cigarettes, uncomplicated; E66.9 Obesity, unspecified; Z68.28 Body mass index [BMI] 28.0-28.9, adult; Z79.82 Long term (current) use of aspirin; Z79.1 Long term (current) use of non-steroidal anti-inflammatories (NSAID); Z79.899 Other long term (current) drug therapy
CPT/HCPCS: 45380; 45385; 82948; A9270; J1610; J2250; J3010; J7120

== ENCOUNTER 2016-08-02 11:17 | Emergency (ER) | payer OTHER, MEDICARE, MEDICAID ==
[~2016-08-02] VITALS: Ht 177.8 cm; Wt 88.6 kg
[~2016-08-02 11:17] MED LIST changes: -LIDOCAINE 1% (10mg/ml) 2ml SDV INJ ONE; -LR 1,000 ML IV SCH; -PEG4000S3 PO
[2016-08-02 11:18] VITALS: Ht 177.8 cm; Wt 88.6 kg
--- OUTSIDE RECORDS SUMMARY | 2016-08-02 11:24 | XMS REPORT | Continuity of Care Document ---
Author Author [facility] Organization [facility] Address Unknown Phone Unavailable Care Team Providers Care Tile Designer Name Role Phone JOHANA MADDEN MD PP Unavailable Insurance Providers Payer Name Policy Number Subscriber Name Relationship Medicarehumana Gold o [id number] Shakir Lobo 19 Self Problems No Known [...] Methocarbamol (Robaxin-750) 1 Tab PO HS Fish Oil/[place]-3 Fatty Acids (Fish Oil 1,000 Mg Capsule) [...] 1:47pm None seen /HPF - Urine Specific [place] October 25, 2012 6:11pm 1.010 L - [...] Procedures Procedure Code Date COLONOSCOPY AND BIOPSY 75476 09/04/07 INCISE THIGH TENDON & FASCIA 56614 07/15/09 LESION REMOVAL COLONOSCOPY 52252 12/06/11 COLONOSCOPY AND BIOPSY 94633 12/06/11 THER/PROPH/DIAG INJ IV PUSH 52534 05/21/12 TX/PRO/DX INJ NEW DRUG ADDON 72393 05/21/12 HYDRATE IV INFUSION ADD-ON 99074 05/21/12 Blood Culture 10/25/12 Encounters Encounter Location Date/Time Discharged Inpatient [facility] 10/25/12 12:25pm Departed Emergency Room [facility] 05/21/12 7:34pm
--- OUTSIDE RECORDS SUMMARY | 2016-08-02 11:25 | XMS REPORT | Continuity of Care Document ---
Author Author [facility] Organization [facility] Address Unknown Phone Unavailable Care Team Providers Care Timber Skidder Name Role Phone JOHANA MADDEN MD PP Unavailable Insurance Providers Payer Name Policy Number Subscriber Name Relationship Medicarehumana Gold o [id number] Shakir Lobo 19 Self Problems No Known [...] Methocarbamol (Robaxin-750) 1 Tab PO HS Fish Oil/[place]-3 Fatty Acids (Fish Oil 1,000 Mg Capsule) [...] 1:47pm None seen /HPF - Urine Specific [place] October 25, 2012 6:11pm 1.010 L - [...] Procedures Procedure Code Date COLONOSCOPY AND BIOPSY 00773 09/04/07 INCISE THIGH TENDON & FASCIA 42930 07/15/09 LESION REMOVAL COLONOSCOPY 37568 12/06/11 COLONOSCOPY AND BIOPSY 85597 12/06/11 THER/PROPH/DIAG INJ IV PUSH 82293 05/21/12 TX/PRO/DX INJ NEW DRUG ADDON 73077 05/21/12 HYDRATE IV INFUSION ADD-ON 63920 05/21/12 Blood Culture 10/25/12 Encounters Encounter Location Date/Time Discharged Inpatient [facility] 10/25/12 12:25pm Departed Emergency Room [facility] 05/21/12 7:34pm
--- OUTSIDE RECORDS SUMMARY | 2016-08-02 11:25 | XMS REPORT ---
Author Author GENERATED, SYSTEM Organization Unknown Address Unknown Phone Unavailable Care Team Providers Care Equine Dentist Name Role Phone UNASSIGNED DOCTOR , DOCTOR PP [phone] Reason For Visit Reason for Visit from [...] 2:00 PM * Address # [address] : [address] * #2 Office appointment: : Arabella Ji * #2 Date/Time : 08/18/2014 11:00 AM * Address # 2 : [address] Procedures No relevant procedures performed. Immunizations No [...] the responsibility of the patient or patient customer field representative to confirm the list of medications [...]
--- OUTSIDE RECORDS SUMMARY | 2016-08-02 11:25 | XMS REPORT | Continuity of Care Document ---
Author Author [facility] Organization [facility] Address Unknown Phone Unavailable Care Team Providers Care Tank Calibrator Name Role Phone RAMIRO DELA CRUZ DO Primary Care Physician [phone] Insurance Providers Guarantor Shakir Lobo Address [address] [place] [address] Email DENIED 16 Payer Medicaid Policy Number [id number] Subscriber's Shakir Bonilla Relationship 18 Self Effective Date 16 Expiration Date 16 Payer Medicarehumana Gold Hmo Policy Number [id number] Subscriber's Shakir Bonilla Relationship 18 Self Advance Directives Directive Response Recorded Date/Time Ordered Resuscitation Status Full Code 07/26/16 3:00pm Resuscitation Documents on File No 07/27/16 11:17am DPOA for Healthcare Only No 07/27/16 11:17am Living Will No 07/27/16 11:17am Problems Active Problems Medical Problem Onset Date Status Depression with suicidal ideation Unknown Acute Schizophrenia Unknown Acute Medications Current Home Medications Medication Dose Units Route Directions Days Qty Instructions Start Date Albuterol/Ipratropium (Combivent Respimat Inhal [place]) 120 Puff/4 Gm Inha 1 Puff Oral Four Times Daily as needed for Shortness Of Air/Wheezing 07/25/16 Aspirin 81 Mg Tablet 81 Mg Oral Daily 11/19/12 Breo Daily 07/26/16 Duloxetine Hcl (Cymbalta) 60 Mg Capsule. 60 Mg Oral Daily COMBINE WITH 30MG TO EQUAL 90MG TOTAL. 05/21/12 Esomeprazole Mag Trihydrate (Nexium) 20 Mg Capsule. 40 Mg Oral Daily 10/09/09 Gabapentin 600 [...] Pack Tab.osm.24 2 Tab Oral Daily 10/09/09 Pravastatin Sodium 40 Mg Tablet 40 Mg [...] 60 Mg Oral Daily 10/09/09 Discontinued Fish Oil/[place]-3 Fatty Acids (Fish Oil 1,000 Mg Capsule) [...] , Oral Twice A Day 10/08/08 Discontinued Peg 3350/Na Sulf,Bicarb,Cl/Kcl (Golytely Solution) 4,000 Ml Solution, 4000 Ml Oral Onetime 07/26/16 Discontinued Pravastatin , Oral Daily 05/21/12 Discontinued [...] Onset Date Status Reason for Hospitalization COLONOSCOPY 07/27/2016 2:11pm Not Applicable Not Applicable Chewing Tobacco Status No 11/19/2012 11:07am Not Applicable Not Applicable Hx Substance Use N HX MARIJUANA, QUIT IN 198707/26/2016 2:54pm Not Applicable Not Applicable Hx Alcohol Use Y "CLEAN SINCE 1987", no beer since 07/26/2016 2:54pm Not Applicable Not Applicable Has the pt used tobacco in the last 12 months Yes 07/26/2016 2:54pm Not Applicable Not Applicable Tobacco Usage none [...] hours, call Dr. Dela Cruz's office at [phone]. After Business Hours:: After hours, please call [facility] at [phone] and have the package yarns drying machine operator page Dr. Dela Cruz or the covering physician. Pain Management/Treatment: You should not have significant pain following the procedure. Wound/Incision Care: No wound care required. Condition at time of discharge: Good Plan of Care Discharge Date 07/27/16 2:53pm Instructions/Education Provided [facility] Surgical Services Prescriptions See Medication Section Functional Status Query Response Date Recorded Ability to complete ADL's impeded by No change July 27, 2016 11:17am Allergies, Adverse Reactions, Alerts Allergen Type Severity Reaction Status Last Updated Penicillin Allergy Intermediate Active 07/27/16 Bee venom Allergy Severe Active 07/27/16 Immunizations Query Response on File Recorded Date/Time Hx Influenza Vaccination Y fall 201507/26/16 2:54pm Hx Pneumococcal Vaccination Y 201407/26/16 2:54pm Hx Influenza Vaccination Y fall 201507/26/16 2:54pm Vital Signs Acute Vital Signs Vital Response Date/Time Temperature (Fahrenheit) 97.0 deg F (96.8 - 99.1) 07/27/2016 2:00pm Temperature (Calculated Celsius) 36.78268 degrees C (36.0 - 37.3) 07/27/2016 2:00pm Temperature Source Temporal 07/27/2016 2:00pm Pulse Rate (adult) 72 bpm (60 - 100) 07/27/2016 2:45pm Respiratory Rate 16 breaths/min (10 - 20) 07/27/2016 2:45pm O2 Sat by Pulse Oximetry 90 % (90 - 100) 07/27/2016 2:45pm Oxygen Delivery Method Mask 07/27/2016 12:33pm Oxygen Delivery Method Room Air 07/27/2016 2:45pm Oxygen Flow Rate 6.00 L/min 07/27/2016 12:33pm Blood Pressure 103/61 mm Hg 07/27/2016 2:45pm Blood Pressure Source Automatic Cuff 07/27/2016 2:45pm Height (Feet) 5 feet 07/27/2016 11:15am Height (Inches) 10.00 inches 07/27/2016 11:15am Weight (Kilograms) 88.800 kg 07/27/2016 11:15am Body Mass Index (BMI) 28.1 07/27/2016 11:15am Results Laboratory Results Test Name Result Units Flags Reference Collection Date/Time Result Date/ Time Comments Glucometer 86 mg/dL 75-110 07/27/2016 11:33am 07/27/2016 11:35am Procedures Procedure Status Date Provider(s) Colonoscopy with polypectomy and biopsy Completed 07/26/16 RAMIRO DELA CRUZ DO Colonoscopy with polypectomy and biopsy Completed 07/27/16 RAMIRO DELA CRUZ DO Encounters Encounter Location Arrival/Admit Date Discharge/Depart Date Attending Provider Departed [facility] 07/27/16 10:34am 07/27/16 2 :53pm RAMIRO DELA CRUZ DO Departed [facility] 07/26/16 6:25am 07/26/16 10 :45am RAMIRO DELA CRUZ DO
--- OUTSIDE RECORDS SUMMARY | 2016-08-02 11:25 | XMS REPORT ---
Author Author GENERATED, SYSTEM Organization Unknown Address Unknown Phone Unavailable Care Team Providers Care Beef Cattle Farm Manager Name Role Phone UNASSIGNED DOCTOR , DOCTOR PP [phone] Reason For Visit Reason for Visit from [...] 2:00 PM * Address # 1 : [place] [phone] * #2 Office appointment: : Arabella Ji * #2 Date/Time : 08/18/2014 11:00 AM * Address # 2 : [place] [phone] Procedures No relevant procedures performed. Immunizations No [...] the responsibility of the patient or patient retail customer service representative to confirm the list of medications [...]
[2016-08-02] MEDS ORDERED: FLUT1AER INH (12:09)
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
--- OUTSIDE RECORDS SUMMARY | 2016-08-02 12:10 | XMS REPORT | Continuity of Care Document ---
Author Author [facility] Organization [facility] Address Unknown Phone Unavailable Care Team Providers Care Glue Bone Drier Name Role Phone JOHANA MADDEN MD PP Unavailable Insurance Providers Payer Name Policy Number Subscriber Name Relationship Medicarehumana Gold o [id number] Shakir Lobo 19 Self Problems No Known [...] Methocarbamol (Robaxin-750) 1 Tab PO HS Fish Oil/[place]-3 Fatty Acids (Fish Oil 1,000 Mg Capsule) [...] 1:47pm None seen /HPF - Urine Specific [place] October 25, 2012 6:11pm 1.010 L - [...] Procedures Procedure Code Date COLONOSCOPY AND BIOPSY 61677 09/04/07 INCISE THIGH TENDON & FASCIA 36487 07/15/09 LESION REMOVAL COLONOSCOPY 65581 12/06/11 COLONOSCOPY AND BIOPSY 68050 12/06/11 THER/PROPH/DIAG INJ IV PUSH 74832 05/21/12 TX/PRO/DX INJ NEW DRUG ADDON 77416 05/21/12 HYDRATE IV INFUSION ADD-ON 53359 05/21/12 Blood Culture 10/25/12 Encounters Encounter Location Date/Time Discharged Inpatient [facility] 10/25/12 12:25pm Departed Emergency Room [facility] 05/21/12 7:34pm
--- OUTSIDE RECORDS SUMMARY | 2016-08-02 12:10 | XMS REPORT | Continuity of Care Document ---
Author Author [facility] Organization [facility] Address Unknown Phone Unavailable Care Team Providers Care Senior Project Architect Name Role Phone JOHANA MADDEN MD PP Unavailable Insurance Providers Payer Name Policy Number Subscriber Name Relationship Medicarehumana Gold o [id number] Shakir Lobo 19 Self Problems No Known [...] Methocarbamol (Robaxin-750) 1 Tab PO HS Fish Oil/[place]-3 Fatty Acids (Fish Oil 1,000 Mg Capsule) [...] 1:47pm None seen /HPF - Urine Specific [place] October 25, 2012 6:11pm 1.010 L - [...] Procedures Procedure Code Date COLONOSCOPY AND BIOPSY 29911 09/04/07 INCISE THIGH TENDON & FASCIA 50381 07/15/09 LESION REMOVAL COLONOSCOPY 79059 12/06/11 COLONOSCOPY AND BIOPSY 80592 12/06/11 THER/PROPH/DIAG INJ IV PUSH 22195 05/21/12 TX/PRO/DX INJ NEW DRUG ADDON 05078 05/21/12 HYDRATE IV INFUSION ADD-ON 85189 05/21/12 Blood Culture 10/25/12 Encounters Encounter Location Date/Time Discharged Inpatient [facility] 10/25/12 12:25pm Departed Emergency Room [facility] 05/21/12 7:34pm
--- OUTSIDE RECORDS SUMMARY | 2016-08-02 12:10 | XMS REPORT ---
Author Author [facility] Organization Unknown Address Unknown Phone Unavailable Care Team Providers Care Integration Manager Name Role Phone UNASSIGNED DOCTOR , DOCTOR PP [phone] Reason For Visit Reason for Visit from [...] 2:00 PM * Address # 1 : [employer] [phone] * #2 Office appointment: : Arabella Ji * #2 Date/Time : 08/18/2014 11:00 AM * Address # 2 : [employer] [phone] Procedures No relevant procedures performed. Immunizations No [...] the responsibility of the patient or patient financial sales representative to confirm the list of [...]
--- OUTSIDE RECORDS SUMMARY | 2016-08-02 12:11 | XMS REPORT ---
Author Author [facility], SYSTEM Organization Unknown Address Unknown Phone Unavailable Care Team Providers Care Bag Machine Adjuster Name Role Phone UNASSIGNED DOCTOR , DOCTOR PP [phone] Reason For Visit Reason for Visit from [...] 2:00 PM * Address # 1 : [employer] [phone] * #2 Office appointment: : Arabella Ji * #2 Date/Time : 08/18/2014 11:00 AM * Address # 2 : [place] [phone] Procedures No relevant procedures performed. Immunizations No [...] the responsibility of the patient or patient senior patient account representative to confirm the list of medications [...]
[2016-08-02] MEDS ORDERED: NORMAL SALINE 1,000 ML IV ONE (12:15)
[2016-08-02 12:45] LABS: BASOPHILS % (AUTO) 0.4 % (0-2); EOSINOPHILS # (AUTO) 0.2 T/MM3 (0-0.5); EOSINOPHILS % (AUTO) 1.8 % (0-4); HCT - HEMATOCRIT 41.5 % (41-53); IMMATURE GRANULOCYTE # (AUTO) 0.02 T/MM3 (0.00-0.03); IMMATURE GRANULOCYTE % (AUTO) 0.2 % (0.0-0.5); LYMPHOCYTES # (AUTO) 2.3 T/MM3 (1-4.8); LYMPHOCYTES % (AUTO) 22.6 % (23-45); MEAN CORPUSCULAR HGB CONC(MCHC 33.7 GM/DL (31-37); MEAN CORPUSCULAR VOLUME 86.1 UM3 (80-100); MEAN PLATELET VOLUME 10.9 UM3 (9.4-12.4); MONOCYTES # (AUTO) 0.8 T/MM3 (0-0.8); MONOCYTES % (AUTO) 7.6 % (0-9.0); NEUTROPHILS #(AUTO)-ABSOLUTE 6.8 T/MM3 (1.8-7.7); NEUTROPHILS % (AUTO) 67.4 % (33-66); RED BLOOD COUNT 4.82 M/MM3 (4.50-5.90); WBC - WHITE BLOOD COUNT 10.1 T/MM3 (4.5-11.0)
[2016-08-02 12:53] LABS: ALBUMIN 3.7 G/DL (3.5-5.0); ALBUMIN/GLOBULIN RATIO 1.5 RATIO (1.1-2.2); ALKALINE PHOSPHATASE 69 U/L (38-126); ALT (SGPT) 42 U/L (21-72); ANION GAP 10 MEQ/L (5-15); AST (SGOT) 34 U/L (17-59); BUN/CREATININE RATIO 9 RATIO (6-26); CALCIUM 8.8 MG/DL (8.4-10.2); CHLORIDE 110 MEQ/L (98-107); CO2 - CARBON DIOXIDE 25 MEQ/L (22-30); CREATININE 0.8 MG/DL (0.8-1.5); GLOMERULAR FILTRATION RATE 101; GLUCOSE 104 MG/DL (75-110); POTASSIUM 4.1 MEQ/L (3.6-5); SODIUM 145 MEQ/L (134-144); TOTAL PROTEIN 6.2 G/DL (6.3-8.2)
[2016-08-02] MEDS ORDERED: NORMAL SALINE 100 ML ONE (13:00)
[2016-08-02] MEDS ORDERED: IOHEXOL 300 MG/ML 100ml INJECTION ONE (13:00)
[2016-08-02] MEDS ORDERED: SALINE FLUSH 10ml SYRINGE ONE (13:00)
--- NOTE | 2016-08-02 13:05 | NUR ---
CT PATIENT TO CT PER CART, STABLE. ACCOMPANIED BY [facility] RN.
--- NOTE | 2016-08-02 13:25 | NUR ---
RETURN PATIENT BACK FROM RADIOLOGY PER CART, STABLE. WARM BLANKET PROVIDED FOR COMFORT.
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
--- NOTE | 2016-08-02 13:44 | NUR ---
C COLLAR C COLLAR REMOVED, OK PER Nunu VARGHESE APRN.
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
--- NOTE | 2016-08-02 14:29 | NUR ---
activity PATIENT AMBULATORY TO RESTROOM TO PROVIDE UA, TOLERATES ACTIVITY WELL. DENIES ANY DIZZY/LIGHT HEADEDNESS UPON STANDING.
[2016-08-02 14:47] LABS: BLOOD, URINE NEGATIVE (NEGATIVE); COLOR,URINE YELLOW (YELLOW); LEUKOCYTE ESTERASE ,URINE NEGATIVE (NEGATIVE); NITRITE,URINE NEGATIVE (NEGATIVE); UROBILINOGEN,URINE 0.2 EU/DL (NORMAL)
[2016-08-02 14:57] VITALS: BP 119/72; PULSE 77; RESP 19; TEMP 97.7; O2SAT 93
== END 2016-08-02 14:57 | disposition home or self-care (01) ==
LOC: ED 11:17
DX: S16.1XXA Strain of muscle, fascia and tendon at neck level, initial encounter (principal); S70.02XA Contusion of left hip, initial encounter; R10.12 Left upper quadrant pain; V49.40XA Driver injured in collision with unspecified motor vehicles in traffic accident, initial encounter; Y93.89 Activity, other specified; Y92.410 Unspecified street and highway as the place of occurrence of the external cause; Y99.8 Other external cause status
CPT/HCPCS: 70450; 71010; 72125; 74177; 80053; 81003; 85025; 96360; 96361; 99284; J7030; J7050; Q9967

== ENCOUNTER 2016-09-03 20:01 | Emergency (ER) | payer MEDICARE, MEDICAID ==
[~2016-09-03] VITALS: Ht 177.8 cm; Wt 89.3 kg
[~2016-09-03 20:01] MED LIST changes: -BREO; +FLUT1AER INH
--- OUTSIDE RECORDS SUMMARY | 2016-09-03 20:05 | XMS REPORT | Continuity of Care Document ---
Author Author [facility] Organization [facility] Address Unknown Phone Unavailable Care Team Providers Care Blending Machine Operator Name Role Phone JOHANA MADDEN MD PP Unavailable Insurance Providers Payer Name Policy Number Subscriber Name Relationship [employer]hum[employer] Gold o [id number] Shakir Lobo 19 Self Problems No Known [...] Methocarbamol (Robaxin-750) 1 Tab PO HS Fish Oil/[place]-3 Fatty Acids (Fish Oil 1,000 Mg Capsule) [...] 1:47pm None seen /HPF - Urine Specific [place] October 25, 2012 6:11pm 1.010 L - [...] Procedures Procedure Code Date COLONOSCOPY AND BIOPSY 16284 09/04/07 INCISE THIGH TENDON & FASCIA 49129 07/15/09 LESION REMOVAL COLONOSCOPY 61224 12/06/11 COLONOSCOPY AND BIOPSY 13273 12/06/11 THER/PROPH/DIAG INJ IV PUSH 99648 05/21/12 TX/PRO/DX INJ NEW DRUG ADDON 60452 05/21/12 HYDRATE IV INFUSION ADD-ON 27068 05/21/12 Blood Culture 10/25/12 Encounters Encounter Location Date/Time Discharged Inpatient [facility] 10/25/12 12:25pm Departed Emergency Room [facility] 05/21/12 7:34pm
--- OUTSIDE RECORDS SUMMARY | 2016-09-03 20:05 | XMS REPORT | Continuity of Care Document ---
Author Author [facility] Organization [facility] Address Unknown Phone Unavailable Care Team Providers Care Claims Clerk Name Role Phone JOHANA MADDEN MD PP Unavailable Insurance Providers Payer Name Policy Number Subscriber Name Relationship Medicarehumana Gold o [id number] Shakir Lobo 19 Self Problems No Known [...] Methocarbamol (Robaxin-750) 1 Tab PO HS Fish Oil/[place]-3 Fatty Acids (Fish Oil 1,000 Mg Capsule) [...] 1:47pm None seen /HPF - Urine Specific [place] October 25, 2012 6:11pm 1.010 L - [...] Procedures Procedure Code Date COLONOSCOPY AND BIOPSY 50997 09/04/07 INCISE THIGH TENDON & FASCIA 50165 07/15/09 LESION REMOVAL COLONOSCOPY 06204 12/06/11 COLONOSCOPY AND BIOPSY 04718 12/06/11 THER/PROPH/DIAG INJ IV PUSH 06111 05/21/12 TX/PRO/DX INJ NEW DRUG ADDON 31068 05/21/12 HYDRATE IV INFUSION ADD-ON 27192 05/21/12 Blood Culture 10/25/12 Encounters Encounter Location Date/Time Discharged Inpatient [facility] 10/25/12 12:25pm Departed Emergency Room [facility] 05/21/12 7:34pm
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
--- OUTSIDE RECORDS SUMMARY | 2016-09-03 20:06 | XMS REPORT ---
Author Author [facility] Organization Unknown Address Unknown Phone Unavailable Care Team Providers Care Elevator Constructor Helper Name Role Phone UNASSIGNED DOCTOR , DOCTOR PP [phone] Reason For Visit Reason for Visit from [...] 2:00 PM * Address # 1 : [employer] [phone] * #2 Office appointment: : Arabella Ji * #2 Date/Time : 08/18/2014 11:00 AM * Address # 2 : [employer] [phone] Procedures No relevant procedures performed. Immunizations No [...] the responsibility of the patient or patient office machines sales representative to confirm the list of [...]
--- OUTSIDE RECORDS SUMMARY | 2016-09-03 20:06 | XMS REPORT ---
Author Author [facility] Organization Unknown Address Unknown Phone Unavailable Care Team Providers Care Metallurgy Teacher Name Role Phone UNASSIGNED DOCTOR , DOCTOR PP [phone] Reason For Visit Reason for Visit from [...] 2:00 PM * Address # 1 : [employer] [phone] * #2 Office appointment: : Arabella Ji * #2 Date/Time : 08/18/2014 11:00 AM * Address # 2 : [employer] [phone] Procedures No relevant procedures performed. Immunizations No [...] the responsibility of the patient or patient insurance claims representative to confirm the list of medications [...]
[2016-09-03 20:15] VITALS: Ht 177.8 cm; Wt 89.3 kg
--- OUTSIDE RECORDS SUMMARY | 2016-09-03 20:35 | XMS REPORT ---
Author Author [facility] Organization Unknown Address Unknown Phone Unavailable Care Team Providers Care Edi Programmer Analyst Name Role Phone UNASSIGNED DOCTOR , DOCTOR PP [phone] Reason For Visit Reason for Visit from [...] 2:00 PM * Address # 1 : [employer] [phone] * #2 Office appointment: : Arabella Ji * #2 Date/Time : 08/18/2014 11:00 AM * Address # 2 : [employer] [phone] Procedures No relevant procedures performed. Immunizations No [...] the responsibility of the patient or patient guest service representative to confirm the list of [...]
--- OUTSIDE RECORDS SUMMARY | 2016-09-03 20:35 | XMS REPORT | Continuity of Care Document ---
Author Author [facility] Organization [facility] Address Unknown Phone Unavailable Care Team Providers Care Drafter Structural Name Role Phone JOHANA MADDEN MD PP Unavailable Insurance Providers Payer Name Policy Number Subscriber Name Relationship Medicarehumana Gold o [id number] Shakir Lobo 19 Self Problems No Known [...] (Robaxin-750) 1 Tab PO HS Fish Oil/[place]-3 Fatty Acids (Fish Oil 1,000 Mg Capsule) [...] 1:47pm None seen /HPF - Urine Specific [place] October 25, 2012 6:11pm 1.010 L - [...] Procedures Procedure Code Date COLONOSCOPY AND BIOPSY 77678 09/04/07 INCISE THIGH TENDON & FASCIA 86087 07/15/09 LESION REMOVAL COLONOSCOPY 42304 12/06/11 COLONOSCOPY AND BIOPSY 70951 12/06/11 THER/PROPH/DIAG INJ IV PUSH 25171 05/21/12 TX/PRO/DX INJ NEW DRUG ADDON 01245 05/21/12 HYDRATE IV INFUSION ADD-ON 71245 05/21/12 Blood Culture 10/25/12 Encounters Encounter Location Date/Time Discharged Inpatient [facility] 10/25/12 12:25pm Departed Emergency Room [facility] 05/21/12 7:34pm
--- OUTSIDE RECORDS SUMMARY | 2016-09-03 20:35 | XMS REPORT ---
Author Author [facility] Organization Unknown Address Unknown Phone Unavailable Care Team Providers Care Drum Filler Name Role Phone UNASSIGNED DOCTOR , DOCTOR PP [phone] Reason For Visit Reason for Visit from [...] 2:00 PM * Address # 1 : [employer] [phone] * #2 Office appointment: : Arabella Ji * #2 Date/Time : 08/18/2014 11:00 AM * Address # 2 : [employer] [phone] Procedures No relevant procedures performed. Immunizations No [...] the responsibility of the patient or patient dealer compliance representative to confirm the list of medications [...]
--- OUTSIDE RECORDS SUMMARY | 2016-09-03 20:35 | XMS REPORT | Continuity of Care Document ---
Author Author [facility] Organization [facility] Address Unknown Phone Unavailable Care Team Providers Care Group Worker Name Role Phone JOHANA MADDEN MD PP Unavailable Insurance Providers Payer Name Policy Number Subscriber Name Relationship Medicarehumana Gold o [id number] Shkair Lobo 19 Self Problems No Known Problems [...] Methocarbamol (Robaxin-750) 1 Tab PO HS Fish Oil/[place]-3 Fatty Acids (Fish Oil 1,000 Mg Capsule) [...] 1:47pm None seen /HPF - Urine Specific [place] October 25, 2012 6:11pm 1.010 L - [...] Procedures Procedure Code Date COLONOSCOPY AND BIOPSY 58721 09/04/07 INCISE THIGH TENDON & FASCIA 61605 07/15/09 LESION REMOVAL COLONOSCOPY 73234 12/06/11 COLONOSCOPY AND BIOPSY 55819 12/06/11 THER/PROPH/DIAG INJ IV PUSH 18164 05/21/12 TX/PRO/DX INJ NEW DRUG ADDON 91157 05/21/12 HYDRATE IV INFUSION ADD-ON 10766 05/21/12 Blood Culture 10/25/12 Encounters Encounter Location Date/Time Discharged Inpatient [facility] 10/25/12 12:25pm Departed Emergency Room [facility] 05/21/12 7:34pm
[2016-09-03] MEDS ORDERED: NITR4.9S5 SL (20:37)
[2016-09-03] MEDS ORDERED: MELO-267 PO (20:37)
[2016-09-03] MEDS ORDERED: METF750T2 PO (20:37)
[2016-09-03] MEDS ORDERED: VIT-10 PO (20:39)
[2016-09-03] MEDS ORDERED: PANT40TA27 PO (20:39)
--- NOTE | 2016-09-03 20:54 | ERPDOC ---
Departure Disposition Decision Date: September 03, 2016 Disposition Decision Time: 23:16 Disposition: 01 DISCHARGED HOME, SELF-CARE Impression Impression Impression: Primary Impression: GI bleed GI bleed type/associated pathology: unspecified gastrointestinal hemorrhage type Qualified Codes: K92.2 - Gastrointestinal hemorrhage, unspecified Severity: Mild Condition: Stable Seen By: Physician only Referrals: RAMIRO DELA CRUZ DO (PCP) 1 Week Patient Instructions: Gastrointestinal Bleeding (ED) Problems/Meds/Labs Reviewed?: Yes Medications reviewed and manag: Yes Additional Instructions: You have some bleeding from your bottom. We did not find a cause for this. You have no bleeding in your belly or abnormal masses. Stop taking your mobic until you follow up with your doctor. Follow up with your doctor later this work for further evaluation and likely referral for a colonoscopy. Follow up care ordered?: Yes Mental Status: Alert, Oriented HPI - General Medical General Chief Complaint: GI Bleed Stated Complaint: BLOOD IN STOOL Time Seen by Provider: 20:25 Source: patient Exam Limitations: no limitations HPI - General Medical Initial Comments 55yo man presents to the ER today with 3 days of blood in the toilet. Pt has a remote h/o hemorrhoids, but does not have similar sx. Only takes 81mg ASA and mobic. Has had blood in his toilet, blood on his stool, and blood on his TP for the last three days. Has never had sx like this before. Occurred At: home Onset: Rapid, Constant Duration: other Severity: moderate Associated Symptoms: DENIES: fever/chills, nausea/vomiting, shortness of breath Hx of Similar Symptoms: No Allergies: Coded Allergies: venom-honey bee (Verified Allergy, Severe, 08/02/16) Penicillins (Verified Allergy, Intermediate, 08/02/16) Past History Patient Medical History (1) External hemorrhoids (2) Schizophrenia (3) Depression with suicidal ideation Past Medical History Metabolic: diabetes, hypercholesterolemia GI: GERD Neurological: neuropathy Musculoskeletal: back pain Psychological: depression, personality disorder, schizophrenia, suicide attempt Surgical History General: appendix, exploratory laparotomy, tonsils Joint: hip, other, shoulder Vaccines Hx Influenza Vaccination: Yes (fall 2015) Hx Pneumococcal Vaccination: Yes (2014) Review of Systems GI Upper Abdomen: DENIES: dysphagia, food intolerances, heartburn/indigestion, hematemesis, nausea, pain, vomiting Lower Abdomen: blood in stool, DENIES: sage-colored stools, constipation, diarrhea, melena, pain, painful BM All other Systems All Other Systems: Reviewed and Negative Physical Exam General General Nourishment: well nourished, well developed, appears stated age, no acute distress, adult, obese General Body Habitus: disheveled Vitals and Pain First Documented Vital Signs Date Time Temp Pulse Resp B/P Pulse Ox O2 Delivery O2 Flow Rate FiO2 09/03/16 20:15 98.5 90 16 112/71 93 Room Air Weight: Kilograms: Height (feet): 5 Height (inches): 10.00 Triage Pain Scale: RN VS reviewed by Provider: Yes Normal Exams: Head: Normocephalic w/o trauma Eyes: Pupils are PERRLA w/ EOMI, No scleral icterus, irritation ENMT: No facial trauma, nasal exudates, pharyngeal erythema Neck: Full range of motion, without adenopathy, JVD Lymphatic: No lymphadenopathy Musculoskeletal: No tenderness, or deformity noted Integumentary: No rashes, hives, or bruising noted Neurologic: Patient is alert, and oriented Abdomen Rectal: FOUND: heme positive stools, sphincter normal tone, NOT FOUND: abscess , external hemorrhoids, fissure, fistula, internal hemorrhoids, thrombosed hemorrhoids Prostate: FOUND: nodule, size (Enlarged), NOT FOUND: boggy, tender Psychiatric (brief) Psychiatric Brief: FOUND: alert, oriented, NOT FOUND: normal affect (Flat; guarded) Differential Diagnoses Considering: Other (Diverticulosis, GI bleed, internal hemorrhoids, fissure) Progress Results/Orders Orders Procedure Category Date Status Time Hemagram - Cbc No Diff LAB 09/03/16 Complete Cmp - Comprehensive LAB 09/03/16 Complete Metabolic PTT LAB 09/03/16 Complete INR LAB 09/03/16 Complete Occult Blood, Stool LAB 09/03/16 Complete 20:43 Ct Abd/Pelvis CT 09/03/16 Resulted W/Contrast Only 21:48 Iohexol (Omnipaque) PHA 09/03/16 Complete 22:03 Normal Saline (Ns) PHA 09/03/16 Complete 22:03 Saline Flush (Iv PHA 09/03/16 Complete Flush) 22:03 Lab Results Laboratory Tests Test 09/03/16 20:43 09/03/16 20:52 Stool Occult Blood Positive White Blood Count 11.8T/MM3 Red Blood Count 4.53M/MM3 Hemoglobin 13.3GM/DL Hematocrit 38.4% Mean Corpuscular Volume 84.8UM3 Mean Corpuscular Hemoglobin 29.4UUG Mean Corpuscular Hemoglobin Concent 34.6GM/DL RDW Standard Deviation 47.8FL Platelet Count 216T/MM3 Mean Platelet Volume 10.7UM3 Prothromb Time International Ratio 0.95 Activated Partial Thromboplast Time 32.2SEC Turbidity < 20 Sodium Level 144MEQ/L Potassium Level 3.7MEQ/L Chloride Level 108MEQ/L Carbon Dioxide Level 26MEQ/L Anion Gap 10MEQ/L Blood Urea Nitrogen 8.0MG/DL Creatinine 0.7MG/DL Glomerular Filtration Rate Calc 118 BUN/Creatinine Ratio 11RATIO Glucose Level 110MG/DL Calculated Osmolality 276MOSM/KG Calcium Level 8.6MG/DL Total Bilirubin 0.20MG/DL Icterus Index < 2 Aspartate Amino Transf (AST/SGOT) 26U/L Alanine Aminotransferase (ALT/SGPT) 34U/L Alkaline Phosphatase 78U/L Total Protein 5.8G/DL Albumin 3.8G/DL Globulin 2.0G/DL Albumin/Globulin Ratio 1.9RATIO Chemistry Specimen Hemolysis < 15 Medications Current ED Medications Iohexol 1 bottle 1 bottle STK-MED ONCE .ROUTE ; Start 09/03/16 at 22:03; Stop at 22:04; Status DC Sodium Chloride (NS) 100 ml @ As Directed STK-MED ONCE .ROUTE ; Start 09/03/16 at 22:03; Stop 09/03/16 at 22:04; Status DC Sodium Chloride (Iv Flush) 10 ml STK-MED ONCE .ROUTE ; Start 09/03/16 at 22:03; Stop 09/03/16 at 22:04; Status DC Progress Progress Pt with pos Hemoccult and o/w normal labs. No evidence of intra abdominal bleed or mass. Will d/c pt to home with instructions to f/u with PCM for further eval/ likely referral to GI. Will recommend that pt d/c NSAIDs until eval'ed by PCM/ GI. Hemagram: mild anemia CMP: elevated Cl, low BUN, low Cr, low total Pr and globulin Coags: NL Hemoccult pos CT CT : CT: Abd/Pelvis IV contrast Interpretation: Normal, Reviewed Written Report AUGUSTTERRI DO September 03, 2016 20:54
[2016-09-03 21:02] LABS: HCT - HEMATOCRIT 38.4 % (41-53); HGB - HEMOGLOBIN 13.3 GM/DL (13.5-17.5); MEAN CORPUSCULAR HGB 29.4 UUG (26-34); MEAN CORPUSCULAR HGB CONC(MCHC 34.6 GM/DL (31-37); MEAN CORPUSCULAR VOLUME 84.8 UM3 (80-100); MEAN PLATELET VOLUME 10.7 UM3 (9.4-12.4); RED BLOOD COUNT 4.53 M/MM3 (4.50-5.90); WBC - WHITE BLOOD COUNT 11.8 T/MM3 (4.5-11.0)
[2016-09-03 21:05] LABS: INR 0.95 (0.77-1.03); PROTHROMBIN TIME 10.5 SEC (9.48-12.52); PTT 32.2 SEC (24-36)
[2016-09-03 21:07] LABS: ALBUMIN 3.8 G/DL (3.5-5.0); ALBUMIN/GLOBULIN RATIO 1.9 RATIO (1.1-2.2); ALKALINE PHOSPHATASE 78 U/L (38-126); ALT (SGPT) 34 U/L (21-72); ANION GAP 10 MEQ/L (5-15); AST (SGOT) 26 U/L (17-59); BUN/CREATININE RATIO 11 RATIO (6-26); CALCIUM 8.6 MG/DL (8.4-10.2); CHLORIDE 108 MEQ/L (98-107); CO2 - CARBON DIOXIDE 26 MEQ/L (22-30); CREATININE 0.7 MG/DL (0.8-1.5); GLOMERULAR FILTRATION RATE 118; GLUCOSE 110 MG/DL (75-110); POTASSIUM 3.7 MEQ/L (3.6-5); SODIUM 144 MEQ/L (134-144); TOTAL PROTEIN 5.8 G/DL (6.3-8.2)
[2016-09-03] MEDS ORDERED: IOHEXOL 300 MG/ML 100ml INJECTION ONE (22:03)
[2016-09-03] MEDS ORDERED: SALINE FLUSH 10ml SYRINGE ONE (22:03)
[2016-09-03] MEDS ORDERED: NORMAL SALINE 100 ML ONE (22:03)
--- NOTE | 2016-09-03 22:37 | NUR ---
CT Patient out to CT
--- NOTE | 2016-09-03 22:53 | NUR ---
CT Patient returns
[2016-09-03 23:25] VITALS: BP 122/79; PULSE 79; RESP 16; TEMP 98.5; O2SAT 93
--- NOTE | 2016-09-04 07:42 | DI ---
Indication: ITS.REASON: Hemoccult positive CT ABD/PELVIS W/CONTRAST ONLY: Comparison: 08/02/2016 CT abdomen pelvis Technique: Patient scanned from above the diaphragm to below the pubic symphysis after approximately 100 cc Omni 300 intravenous contrast is used. Dose reduction imaging technology is utilized. Reformatted sagittal imaging provided. Findings: Lung bases showed some either scarring or atelectasis and small bilateral pleural effusions slightly greater on the left. Heart size is not significantly enlarged. Gallbladder is been previously removed. Liver is homogeneous in texture with no masses or biliary ductal dilatation. Pancreas is unremarkable. Patient does shows some vascular clips adjacent to its inferior margin of the spleen but, the spleen itself is unremarkable.. Adrenal glands seemed unremarkable. The patient showed no pathologic adenopathy in the retroperitoneum. Kidneys both excrete contrast in a similar pattern normal. Visualized bowel demonstrated no significant findings. Bladder contour is unremarkable. Reformatted imaging of the spine showed no acute findings. No suggestion of free air or free fluid seen. Impression: 1. No acute findings appreciated in the CT abdomen pelvis. 2. This was directly communicated to the ordering ER clinician on a callback basis. .
== END 2016-09-03 23:25 | disposition home or self-care (01) ==
LOC: ED 20:01
DX: K92.2 Gastrointestinal hemorrhage, unspecified (principal); R19.5 Other fecal abnormalities
CPT/HCPCS: 36000; 36415; 74177; 80053; 82272; 85027; 85610; 85730; 99284; J7050; Q9967